=== PATIENT | male | born 1995 | race Native Hawaiian/Other Pacific Islander ===

== ENCOUNTER 2022-02-02 06:00 | Emergency (ER) | payer BC ==
[~2022-02-02] VITALS: Ht 172.7 cm; Wt 51.7 kg
[2022-02-02 06:05] VITALS: TEMP 98.9
[2022-02-02 06:29] LABS: PLATELET COUNT 333 K/uL (142-355)
[2022-02-02 06:36] LABS: POTASSIUM 3.8 mmol/L (3.6-5.2)
[2022-02-02 08:46] VITALS: BP 118/76
== END 2022-02-02 08:47 | disposition home or self-care (01) ==
LOC: ED 06:00
PROVIDERS: Emergency Medicine
DX: N13.2 Hydronephrosis with renal and ureteral calculous obstruction (principal); Z87.442 Personal history of urinary calculi
CPT/HCPCS: 36415; 80048; 81000; 85027; 96374; 96375; 99284; J1885; J2175; J2405